=== PATIENT | male | born 1995 | race Caucasian/White ===

== ENCOUNTER 2018-06-10 13:33 | Emergency (ER) | payer OTHER ==
--- NOTE | 2018-06-10 13:52 | ER Report ---
History and Physical Time Seen By MD: 13:49 Hx. of Stated Complaint: PT STATES WAS AT [place] INJURING HIS L CLAVICLE DURING AN EXERCIZE. SWELLING NOTED, GOOD ROM HPI/ROS CHIEF COMPLAINT: Left clavicular pain HISTORY OF PRESENT ILLNESS: Patient is a 22-year-old male with no significant past medical history who presents to emergency department with distal left clavicle pain while performing hand pain, maneuvers. Patient is in the [employer]. He is left-hand dominant. He denies any numbness or tingling. Localizes pain to the distal aspect of the left clavicle. Allergies: Coded Allergies: No Known Drug Allergies (Unverified , 06/10/18) Home Meds Active Scripts Naproxen (NAPROXEN) 375 Mg Tablet, 375 MG PO TID for PAIN, #30 TAB 0 Refills Prov:GENARO CULLEN MD 06/10/18 Past Medical/Surgical History Noncontributory towards the chief complaint Hx Substance Use Disorder: No Hx Alcohol Use: No Constitutional Vital Sign - Last 24 Hours 06/10/18 13:38 Temp 97.5 Pulse 93 Resp 20 B/P (MAP) 145/86 Pulse Ox 92 O2 Delivery Room Air Physical Exam General appearance: [Alert no distress.] Left shoulder: He has normal contour normal sensation over the deltoid area. He has painful abduction at the shoulder. He has point tenderness to the acromioclavicular area. There is no obvious deformity no crepitus to the clavicle. Medical Decision Making EKG/Imaging Imaging x-ray of clavicle shows no acute fracture. X-ray of shoulder appears to show normal alignment with no acute fracture. ED Course/Re-evaluation ED Course 06/10/2018 1:51:50 pm plan at this time will be x-ray of the left clavicle left shoulder Decision to Disposition Date: Jun 10, 2018 Decision to Disposition Time: 14:34 Depart Departure Latest Vital Signs Vital Signs Date Time Temp Pulse Resp B/P (MAP) Pulse Ox O2 Delivery O2 Flow Rate FiO2 06/10/18 13:38 97.5 93 20 145/86 92 Room Air Impression: Primary Impression: Acromioclavicular (joint) (ligament) sprain Condition: Improved Disposition: HOME OR SELF-CARE New Scripts Naproxen (NAPROXEN) 375 Mg Tablet 375 MG PO TID for PAIN, #30 TAB 0 Refills Prov: GENARO CULLEN MD 06/10/18 Departure Forms: ER Transition Record, Medications Reconciliation, Off Work/ School Form, School or Work Release?: Work Number of days to be released: 3 Patient Portal Information Patient Instructions: Acromioclavicular Separation (ED), Exercises for Internal and External Shoulder Rotation (ED), Exercises for Shoulder Abduction and Adduction (GEN), Exercises for Shoulder Flexion and Extension (ED) GENARO CULLEN MD Jun 10, 2018 13:52
[2018-06-10] MEDS ORDERED: NAPR375T44 PO (14:35)
[2018-06-10 14:40] VITALS: BP 122/79
--- NOTE | 2018-06-10 14:41 | RADIOLOGY IMAGING REPORT ---
FACILITY: [facility] PATIENT NAME: Dagoberto Sultaan : 1995 MR: [id number] V: [id number] EXAM DATE: ORDERING PHYSICIAN: GENARO CULLEN TECHNOLOGIST: Location: [facility] [place] Patient: Dagoberto Sultana : 1995 Visit/Account:[id number] Date of Sevice: 06/10/2018 SHOULDER MIN 2 VIEWS LEFT HISTORY: Pain. COMPARISON: None. FINDINGS: External rotated AP, glenohumeral and scapular-Y views left shoulder obtained. Mild widening of the acromioclavicular joint. Osseous structures otherwise unremarkable, intact and n ormally aligned. Soft tissues grossly unremarkable. IMPRESSION: Grade 2 AC joint separation of uncertain chronicity, otherwise unremarkable exam left shoulder. Report Dictated By: Carlos Johnson MD at 06/10/2018 2:33 PM Report E-Signed By: Carlos Johnson MD at 06/10/2018 2:36 PM WSN:[id number]
--- NOTE | 2018-06-10 14:42 | RADIOLOGY IMAGING REPORT ---
FACILITY: [facility] PATIENT NAME: Dagoberto Sultana : 1995 MR: [id number] V: [id number] EXAM DATE: ORDERING PHYSICIAN: GENARO CULLEN TECHNOLOGIST: Location: [facility] [place] Patient: Dagoberto Sultana : 1995 Visit/Account:[id number] Date of Sevice: 06/10/2018 CLAVICLE LEFT HISTORY: pain COMPARISON: None. FINDINGS: AP and angled AP views left clavicle obtained. Mild widening of the acromioclavicular joint. Osseous structures otherwise unremarkable, intact and n ormally aligned. Soft tissues grossly unremarkable. IMPRESSION: Grade 2 AC joint separation of uncertain chronicity, otherwise unremarkable exam left clavicle. Report Dictated By: Carlos Johnson MD at 06/10/2018 2:36 PM Report E-Signed By: Carlos Johnson MD at 06/10/2018 2:37 PM WSN:[id number]
== END 2018-06-10 14:42 | disposition home or self-care (01) ==
LOC: ER 13:41
DX: S43.52XA Sprain of left acromioclavicular joint, initial encounter (principal); X58.XXXA Exposure to other specified factors, initial encounter
CPT/HCPCS: 99283